=== PATIENT | female | born 1960 | race Caucasian/White ===

== ENCOUNTER 2017-08-05 14:36 | Emergency (ER) | payer BC ==
[~2017-08-05] VITALS: Ht 160 cm; Wt 88.6 kg
[~2017-08-05 14:36] MED LIST: AMBIEN5 MG PO; Ambien PO; CAL MAG ZINC +1 EAC1 PO; CARAFATE1 GM PO; CELEBREX200 MG PO; Catapres-TTS 2 TD; DAILY VALUE1 EACH PO; DURAGESIC12 MICROGR TD; GABAPENTIN600 MG PO; LANTUS 3 M100 UNITS/ SC; LEVEMIR FL100 UNIT/1 SC; LEVEMIR FL100 UNITS/ SC; LEXAPRO10 MG PO; LIPITOR20 MG PO; LISINOPRIL2.5 MG PO; NEURONTIN100 MG PO; OXYCODONE HCL10 MG PO; OXYCODONE HCL5 MG PO; PHENTERMINE HCL30 MG PO; PRAVACHOL20 MG PO; PROTONIX40 MG PO; REQUIP0.25 MG PO; ROXICODONE5 MG PO; SENNA PLUS TAB1 EACH PO; THERA-M CAPLET1 EACH PO; TYLENOL REGULA325 MG PO; VALIUM5 MG PO; Vicodin,Lortab 5/500 PO; XARELTO15 MG PO; XARELTO20 MG PO; ZANAFLEX2 M1 PO; ZESTRIL,PRINIV2.5 MG PO; ZESTRIL2.5 MG PO; ZYBAN 150 MG T150 MG PO; Zestril,Prinivil PO; Zoloft PO
[2017-08-05 14:56] VITALS: BP 132/74
== END 2017-08-05 15:49 | disposition left against medical advice (07) ==
LOC: EME 14:36
DX: R06.02 Shortness of breath (principal); R53.83 Other fatigue; R07.89 Other chest pain; Z86.711 Personal history of pulmonary embolism; Z79.01 Long term (current) use of anticoagulants; Z53.21 Procedure and treatment not carried out due to patient leaving prior to being seen by health care provider
CPT/HCPCS: 80048; 85027; 93005

== ENCOUNTER 2017-08-10 14:49 | Emergency (ER) | payer BC ==
[~2017-08-10] VITALS: Ht 162.6 cm; Wt 92.7 kg
[2017-08-10 15:55] LABS: HEMATOCRIT 42.9 % (36.0-46.0); MCH 27.3 PG (29.0-34.0); MCHC 32.6 G/DL (30.0-36.0); MCV 83.8 FL (83-99); MEAN PLAT.VOLUME 8.7 uM^3 (9.5-12.4); PLATELET COUNT 315 K/uL (156-360); RBC DIS.WIDTH-CV 13.4 % (11.8-14.6); RBC DIS.WIDTH-SD 41.1 % (39-53); RED BLOOD COUNT 5.12 M/uL (3.80-5.20); WHITE BLOOD COUNT 12.3 K/uL (4.1-10.2)
[2017-08-10 16:08] LABS: CHLORIDE 107 mEq/L (99-109); POTASSIUM 3.8 mEq/L (3.7-5.4); SODIUM 140 mEq/L (136-147)
[2017-08-10 16:10] LABS: GLUCOSE 108 mg/dL (70-99)
[2017-08-10 16:11] LABS: ANION GAP 9 MEQ/L (2-14)
[2017-08-10 16:13] LABS: GFR ESTIMATE (CALCULATED) > 59 mL/min/
[2017-08-10 16:14] LABS: UREA NITROGEN (BUN) 22 mg/dL (9-23)
[2017-08-10 16:19] LABS: TROP-I INTERPRETATION NEGATIVE; TROPONIN-I < 0.01 ng/mL (0.0-0.30)
[2017-08-10 20:04] VITALS: BP 132/66
== END 2017-08-10 20:04 | disposition home or self-care (01) ==
LOC: EME 14:49
PROVIDERS: Emergency Medicine
DX: R07.89 Other chest pain (principal); Z86.711 Personal history of pulmonary embolism; Z79.01 Long term (current) use of anticoagulants; E78.5 Hyperlipidemia, unspecified; K21.9 Gastro-esophageal reflux disease without esophagitis; F41.9 Anxiety disorder, unspecified; F32.9 Major depressive disorder, single episode, unspecified; Z98.84 Bariatric surgery status; Z85.828 Personal history of other malignant neoplasm of skin
CPT/HCPCS: 71275; 74174; 80048; 84484; 85027; 93005; 99281; 99285; J7030